=== PATIENT | female | born 1955 | race Caucasian/White ===

== ENCOUNTER 2021-07-29 08:30 | Day surgery (SDC) | payer MEDICARE, OTHER ==
[~2021-07-29 08:30] MED LIST: Midazolam 1 MG/ML 2 ML SDV ONE; Propofol 200 MG/20 ML SDV ONE; Sodium Chloride 0.9% 1,000 ML IV SCH; fentaNYL 100 MCG/2 ML SDV ONE
--- NOTE | 2021-07-29 11:21 | OR ---
DATE OF PROCEDURE: 07/29/2021 SURGEON: Marv Nguyen MD PROCEDURE: Colonoscopy. FINDINGS: Normal colonoscopy. COMPLICATIONS: None. HERB COUNSELOR: None. ANESTHESIA: MAC. PREOPERATIVE DIAGNOSIS: Screening colonoscopy/history of colon polyps. POSTOPERATIVE DIAGNOSIS: Screening colonoscopy/history of colon polyps. RISKS: Risks, benefits, alternatives, and limitations including, but not limited to infection, bleeding, perforation, false positives, false negatives were explained to the patient and she wished to proceed. PROCEDURE IN DETAIL: The patient was placed in left lateral decubitus position. Digital rectal exam was performed without abnormality. Scope was introduced and advanced atraumatically to the ileocecal valve. A photo was taken of this. Scope was brought back to the ascending, transverse, descending colon, and retroflexed. No evidence of old or new blood. No masses. No polyps. No diverticulosis. No abnormalities on retroflexion. Greater than 8 minutes was spent removing the scope. Prep was acceptable, approximately 90% of the luminal surface could be seen. No colitis. The patient tolerated the procedure well. Marv Nguyen MD /[id number]
== END 2021-07-29 11:45 | disposition home or self-care (01) ==
LOC: JP.SDS 08:30
PROVIDERS: ATTEND Surgery
DX: Z12.11 Encounter for screening for malignant neoplasm of colon (principal); I10 Essential (primary) hypertension; Z86.010 Personal history of colon polyps
CPT/HCPCS: G0105; J2250; J2704; J3010; J7030